=== PATIENT | male | born 1955 | race Hispanic/Latino ===

== ENCOUNTER → 2019-03-25 | Day surgery (SDC) | payer OTHER ==
[2019-03-22 12:32] LABS: BASOPHILS # (AUTO) 0.1 (0.0-0.1); BASOPHILS % 0.7 % (0.0-1.0); EOSINOPHILS # (AUTO) 0.2 (0.0-0.4); EOSINOPHILS % 1.7 % (0.0-6.0); HEMATOCRIT 42.4 % (38.2-49.6); HEMOGLOBIN 14.3 g/dL (14.0-18.0); MEAN CORPUSCULAR HEMOGLOBIN 32.1 pg (28-32); MEAN CORPUSCULAR HGB CONC 33.7 g/dL (31-35); MEAN CORPUSCULAR VOLUME 95.3 fL (81-99); MONOCYTES # (AUTO) 0.5 (0.2-0.8); MONOCYTES % 5.6 % (4.4-11.3); NEUTROPHILS # (AUTO) 5.4 (2.1-6.9); NEUTROPHILS % 58.6 % (38.7-80.0); PLATELET COUNT 222 x10e3/uL (140-360); RED BLOOD COUNT 4.45 x10e6/uL (4.3-5.7); RED CELL DISTRIBUTION WIDTH 12.5 % (11.7-14.4)
--- NOTE | 2019-03-22 12:36 | Diagnostic Imaging Report ---
EXAMINATION: CHEST 2 VIEWS INDICATION: Pre-operative COMPARISON: None FINDINGS: LINES/TUBES:None LUNGS:The lungs are well-inflated. No focal consolidation or pulmonary edema. PLEURA:No pleural effusion or pneumothorax. MEDIASTINUM:The cardiomediastinal silhouette appears normal in size and shape. BONES/SOFT TISSUES:No acute osseous injury. ABDOMEN:No free air under the diaphragm. IMPRESSION: No focal pneumonia or pulmonary edema. Signed by: Sarah Victor MD on 03/22/2019 12:33 PM
[~2019-03-25] MED LIST: ACETAMINOPHEN 1000 MG/100 ML IV ONE; BUPIVACAINE HCL 0.5% INJ 30 ML VIAL INJ ONE; CEFTRIAXONE SOD 1 GM/NS 50 ML 50 ML IV ONE; DEXAMETHASONE SOD PHOS INJ 4 MG/ML VIAL ONE; FENTANYL CITRATE/PF 100MCG/2 ML INJ ONE; LIDOCAINE HCL 2% LOCAL INJ 5 ML SDV VIAL INJ ONE; MIDAZOLAM HCL 2 MG/2 ML VIAL ONE; ONDANSETRON HCL INJ 2MG/ML 2ML 2 MG/ML VIAL ONE; PROPOFOL IV EMULSION 10 MG/ML 20 ML VIAL ONE; SEVOFLURANE INHAL SOLN 250 ML PEN BTL ONE
--- OUTSIDE RECORDS SUMMARY | 2019-03-25 07:48 | XMS REPORT | Continuity of Care Document ---
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 [employer] Information [employer] Unavailable Unavailable Problems Problem Status Onset Date Classification Date Reported Comments Source Discharge Diagnosis: Thoracalgia 05/25/2016 05/28/2016 [facility] BACK PAIN Active 05/24/2016 [facility] Medications Medication Details Route Status Patient Instructions Ordering Provider Order Date Source ibuprofen 800 mg oral tablet 800 mg=1 tab, PO, Q8H, PRN Fever or Pain, Take with food, X 10 day, # 30 tab, 0 Refill(s) Active 05/25/2016 [facility] tramadol hydrochloride 50 MG Oral Tablet [Ultram] 50 mg=1 tab, PO, Q6H, PRN pain, X 5 day, # 20 tab, 0 Refill(s) Active 05/25/2016 [facility] Cyclobenzaprine hydrochloride 10 MG Oral Tablet [Flexeril] 10 mg, PO, TID, PRN Muscle Spasm, X 10 day, # 30 tab, 0 Refill(s) Active 05/25/2016 [facility] Ketorolac 60 mg, Route: IM, ONCE, Dosing Weight 111.818, kg, Priority: STAT, Start date: 05/25/16 2:15:00 CDT, Stop date: 05/25/16 2:15:00 CDT Inactive 05/25/2016 [facility] Orphenadrine 60 mg, Route: IM, ONCE, Dosing Weight 111.818, kg, Priority: STAT, Start date: 05/25/16 2:15:00 CDT, Stop date: 05/25/16 2:15:00 CDT Inactive 05/25/2016 [facility] Acetaminophen 325 MG / Hydrocodone Bitartrate 5 MG Oral Tablet 1 tab, Route: PO, Dosing Weight 104.545, kg, ONCE, STAT, Start date: 05/24/16 22:59:00 CDT, Stop date: 05/24/16 22:59:00 CDT No Longer Active 05/25/2016 [facility] cyclobenzaprine 10 mg, 1 tab, Route: PO, Drug form: TAB, ONCE, Dosing Weight 104.545, kg, Priority: STAT, Start date: 05/24/16 22:59:00 CDT, Stop date: 05/24/16 22:59:00 CDTNotes: (Same As: Flexeril) No Longer Active 05/25/2016 [facility] Allergies, Adverse Reactions, Alerts No Known Medication Allergies Immunizations No Data Provided for This Section Results No Data Provided for This Section Pathology Reports No Data Provided for This Section Diagnostic Reports Report Value Date Source Shoulder series DX Right shoulder 3 views DX, 05/24/2016 10:59 PM CDT HISTORY: Pain and swelling COMPARISON: None FINDINGS: No evidence for acute fracture. Humeral head is intact and located. Chronic distal clavicular osteolysis or resection. Soft tissues unremarkable. IMPRESSION: No acute osseous abnormality. SL: JOEL 05/24/2016 [facility] Consultation Notes No Data Provided for This Section Discharge Summaries No Data Provided for This Section History and Physicals No Data Provided for This Section Vital Signs Vital Sign Value Date Comments Source Respitory Rate 19 05/25/2016 [facility] Heart Rate 74 05/25/2016 [facility] Temperature Oral (F) 98 F 05/25/2016 [facility] Systolic (mm Hg) 127 05/25/2016 [facility] Diastolic (mm Hg) 74 05/25/2016 [facility] Respitory Rate 20 05/25/2016 [facility] Systolic (mm Hg) 135 05/25/2016 [facility] Diastolic (mm Hg) 74 05/25/2016 [facility] Temperature Oral (F) 98.2 F 05/25/2016 [facility] Heart Rate 68 05/25/2016 [facility] Systolic (mm Hg) 152 05/25/2016 [facility] Diastolic (mm Hg) 86 05/25/2016 [facility] Heart Rate 70 05/25/2016 [facility] Respitory Rate 18 05/25/2016 [facility] Temperature Oral (F) 98.6 F 05/25/2016 [facility] Height 160.02 cm 05/25/2016 [facility] Weight 111.818 05/25/2016 [facility] BMI Calculated 43.67 05/25/2016 [facility] Encounters Location Location Details Encounter Type Encounter Number Reason For Visit Attending Provider ADM Date DC Date Status Source [facility] [id number] Caesar Hobson 05/25/2016 05/25/2016 [facility] Procedures Procedure Code Date Perfomer Comments Source Shoulder repair [id number] [facility] Assessment and Plan No Data Provided for This Section Plan of Care No Data Provided for This Section Social History Social History Date Source Social History TypeResponse Smoking Status Never smoker; Exposure to Tobacco Smoke None; Cigarette Smoking Last 365 Days No; Reg Smoking Cessation Counseling No 05/25/2016 [facility] Family History No Data Provided for This Section Advance Directives No Data Provided for This Section Functional Status No Data Provided for This Section
--- OUTSIDE RECORDS SUMMARY | 2019-03-25 07:48 | XMS REPORT ---
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 Allergies, Adverse Reactions, Alerts This patient has no known allergies or adverse reactions. Medications This patient has no known medications. Results Test Description Test Time Test Comments Text Results Atomic Results Result Comments CHEST 2 VIEWS 2019-03-22 12:32:00 [place] [address] Patient Name: SHERLY GASPAR MR #: [id number] : 1955 Age/Sex: 63/M Req #: [id number] Adm Physician: Ordered by: JODIE REYES MD Report #: [id number] Location: OR Room/Bed: Procedure: [id number] DX/CHEST 2 VIEWS Exam Date: Exam Time: REPORT STATUS: Signed EXAMINATION: CHEST 2 VIEWS INDICATION: Pre-operative COMPARISON: None FINDINGS: LINES/TUBES:None LUNGS:The lungs are well- inflated. No focal consolidation or pulmonary edema. PLEURA:No pleural effusion or pneumothorax. MEDIASTINUM:The cardiomediastinal silhouette appears normal in size and shape. BONES/SOFT TISSUES:No acute osseous injury. ABDOMEN:No free air under the diaphragm. IMPRESSION: No focal pneumonia or pulmonary edema. Signed by: Nemesio Victor MD on 03/22/2019 12:33 PM Dictated By: NEMESIO VICTOR MD [id number] Transcribed By: JUAN C on 03/22/19 1233 COPY TO: JODIE REYES MD
--- OUTSIDE RECORDS SUMMARY | 2019-03-25 07:48 | XMS REPORT | Summary of Care ---
Author Author [facility] Organization [facility] Address Unknown Phone Unavailable Encounter [facility] Brooke(ANTONELLA) [id number] Date(s): 05/24/16 - 05/25/16 [facility] [address] [place] [address]- Discharge Diagnosis: Thoracalgia Discharge Disposition: Home or Self Care Attending Physician: Caesar Hobson MD Vital Signs 1 2 3 Most recent to oldest [Reference Range]: 160.02 cm (05/24/16 10:57 PM) Height 98 DegF (05/25/16 3:55 AM) 98.2 DegF (05/25/16 2:08 AM) 98.6 DegF (05/24/16 10:57 PM) Temperature Oral [96.4-99.1 DegF] 127/74 mmHg (05/25/16 3:55 AM) 135/74 mmHg (05/25/16 2:08 AM) 152/86 mmHg *HI* (05/24/16 10:57 PM) Blood Pressure [90-140/60-90 mmHg] 19 BRMIN (05/25/16 3:55 AM) 20 BRMIN (05/25/16 2:08 AM) 18 BRMIN (05/24/16 10:57 PM) Respiratory Rate [14-20 BRMIN] 74 bpm (05/25/16 3:55 AM) 68 bpm (05/25/16 2:08 AM) 70 bpm (05/24/16 10:57 PM) Peripheral Pulse Rate [60-100 bpm] 111.818 kg (05/24/16 10:57 PM) Weight 43.67 m2 (05/24/16 10:57 PM) Body Mass Index Problem List No data available for this section Allergies, Adverse Reactions, Alerts Substance Reaction Severity Status NKDA Active Medications acetaminophen-hydrocodone 325 mg-5 mg oral tablet 1 tab, Route: PO, Dosing Weight 104.545, kg, ONCE, STAT, Start date: 05/24/16 22 :59:00 CDT, Stop date: 05/24/16 22:59:00 CDT Start Date: 05/24/16 Stop Date: 05/25/16 Status: Completed cyclobenzaprine 10 mg, 1 tab, Route: PO, Drug form: TAB, ONCE, Dosing Weight 104.545, kg, Priori ty: STAT, Start date: 05/24/16 22:59:00 CDT, Stop date: 05/24/16 22:59:00 CDT Notes: (Same As: Flexeril) Start Date: 05/24/16 Stop Date: 05/25/16 Status: Discontinued Flexeril 10 mg oral tablet 10 mg, PO, TID, PRN Muscle Spasm, X 10 day, # 30 tab, 0 Refill(s) Start Date: 05/25/16 Stop Date: 06/04/16 Status: Ordered ibuprofen 800 mg oral tablet 800 mg=1 tab, PO, Q8H, PRN Fever or Pain, Take with food, X 10 day, # 30 tab, 0 Refill(s) Start Date: 05/25/16 Stop Date: 06/04/16 Status: Ordered ketOROLAC 60 mg, Route: IM, ONCE, Dosing Weight 111.818, kg, Priority: STAT, Start date: 1 2:15:00 CDT, Stop date: 05/25/16 2:15:00 CDT Start Date: 05/25/16 Stop Date: 05/25/16 Status: Completed orphenadrine 60 mg, Route: IM, ONCE, Dosing Weight 111.818, kg, Priority: STAT, Start date: 1 2:15:00 CDT, Stop date: 05/25/16 2:15:00 CDT Start Date: 05/25/16 Stop Date: 05/25/16 Status: Completed Ultram 50 mg oral tablet 50 mg=1 tab, PO, Q6H, PRN pain, X 5 day, # 20 tab, 0 Refill(s) Start Date: 05/25/16 Stop Date: 05/30/16 Status: Ordered Results No data available for this section Immunizations No data available for this section Procedures Procedure Date Related Diagnosis Body Site Shoulder repair Social History Social History Type Response Smoking Status Never smoker; Exposure to Tobacco Smoke None; Cigarette Smoking Last 365 Days No; Reg Smoking Cessation Counseling No Assessment and Plan No data available for this section
[2019-03-25 13:15] VITALS: BP 126/90
--- NOTE | 2019-04-01 15:08 | Operative Report ---
DATE OF PROCEDURE: 03/25/2019 SURGEON: Ross Gray MD PREOPERATIVE DIAGNOSIS: Left hydrocele. POSTOPERATIVE DIAGNOSIS: Left hydrocele. OPERATIVE PROCEDURE: Left hydrocelectomy. ANESTHESIA: General anesthesia. ESTIMATED BLOOD LOSS: Minimal. INDICATIONS: Mr. Gianfranco Rudolph is a 63-year-old gentleman with a recent history of left scrotal swelling. He now presents for definitive surgical management of this problem. PROCEDURE IN DETAIL: The patient was brought into the operative room, placed in supine position. After administration of general anesthesia, was prepped and draped in usual sterile fashion. A horizontal incision was made over the left hemiscrotum and dissection was carried up to the layers of the scrotum. The patient was found to have multiple loculated cysts in and around the tunica vaginalis and the epididymis. These were individually opened and marsupialized. Once with the epididymal cysts were opened, the cut edge of the hydrocele was fulgurated and oversewn in an accordion fashion. The testicle was returned to its normal position in the scrotum and a quarter-inch [place] drain was allowed to drain into the portion of scrotum. This was secured to the skin using a chromic suture. The scrotum was then closed in layers using a running chromic sutures, and the skin closed with a baseball stitch. Wound was then cleaned and dried and covered with Telfa gauze and placed in a scrotal support. Anesthesia was reversed. The patient was transferred to a bed and taken to the postanesthesia care unit in good condition. Of note, the needle and instrument count were correct at the conclusion of the case. Ross Gray MD HLW/MODL /[id number]
== END | disposition home or self-care (01) ==
LOC: OR 07:38
PROVIDERS: ATTEND Urology
DX: N43.2 Other hydrocele (principal); G47.33 Obstructive sleep apnea (adult) (pediatric); Z01.810 Encounter for preprocedural cardiovascular examination; Z01.812 Encounter for preprocedural laboratory examination; Z01.811 Encounter for preprocedural respiratory examination
CPT/HCPCS: 36415; 55040; 71046; 85025; 93005; J0131; J0696; J1100; J2001; J2250; J2405; J2704; J3010